=== PATIENT | female | born 1995 | race Caucasian/White ===

== ENCOUNTER 2017-08-24 08:07 | Day surgery (SDC) | payer OTHER ==
[2017-08-24 08:37] VITALS: BMI 25.7
[2017-08-24] MEDS ORDERED: MIDAZOLAM HCL 2 MG/2 ML SINGLE DOSE VIAL ONE (08:55)
[2017-08-24] MEDS ORDERED: DEXAMETHASONE SOD PHOSPHATE 4 MG/1 ML VIAL ONE (08:55)
[2017-08-24] MEDS ORDERED: LIDOCAINE HCL/PF 2% SDV 5ML VIAL ONE (08:55)
[2017-08-24] MEDS ORDERED: PROPOFOL 20 ML ONE ×2 (08:55)
[2017-08-24] MEDS ORDERED: LIDOCAINE HCL 1%, 10 MG/ML (20ML VIAL) ONE (09:38)
[2017-08-24] MEDS ORDERED: LIDOCAINE HCL 1%, 10 MG/ML (20ML VIAL) INF ONE (10:16)
--- NOTE | 2017-08-24 11:02 | HP ---
History & Physical Update - History History: No Change - Physical Physical: No Change - Assessment Assessment: No Change - Plan Plan: No Change
[2017-08-24 11:35] VITALS: TEMP 98.7
[2017-08-24 13:04] VITALS: BP 121/78; PULSE 62
--- NOTE | 2017-08-24 20:37 | OP ---
DATE OF OPERATION: 08/24/2017 PREOPERATIVE DIAGNOSIS: Right breast fibroadenoma. POSTOPERATIVE DIAGNOSIS: Right breast fibroadenoma. PROCEDURE: Excision of right breast mass. SURGEON: Mary Cedeno MD ANESTHESIA: General. ESTIMATED BLOOD LOSS: Minimal. COMPLICATIONS: None. This was a sterile procedure. INDICATION FOR PROCEDURE: Patient presented with a large mass encompassing a lot of the central upper right breast. We did a core biopsy in the office, as a fibroadenoma. As this was enlarging and there was a significant size difference in the 2 breasts, the decision was to go ahead and excise this. The procedure was discussed, with all of her questions answered. PROCEDURE IN DETAIL: Patient was brought to [facility] and taken into the operating room, and after induction of general anesthesia, the right breast was prepped and draped in usual sterile fashion. The area in the upper and retroareolar right breast anesthetized with 1% lidocaine without epinephrine. A periareolar incision was made from the 8 o'clock to the 3 o'clock areolar border, and the mass was excised en bloc. This was difficult as the mass was rather large on trying to getting it out of the breast. However, I was able to remove the mass in entirety, and this was sent to Pathology for permanent section as a right breast mass. Hemostasis was assured with electrocautery. The parenchyma approximated with interrupted 2-0 Vicryl, skin approximated with interrupted 2-0 Vicryl and running and 4-0 Prolene. A sterile dressing with Tegaderm and 4 x 4's applied. She tolerated the procedure well, was extubated on the operating room table, taken to recovery in good condition. Elva [id number]
--- NOTE | 2017-08-26 12:57 | PATH ---
Surgical Pathology Report Patient Name: MILAGRO BARKER [facility] [place]. Rec. #: [id number] /Age/Gender: 1995 (Age: 21) / F Account: [id number] Location: [facility] Taken: 08/24/2017 Received: 08/24/2017 Reported: 08/26/2017 Physicians: Mary Cedeno M.D. Specimen(s) Received RIGHT BREAST MASS Clinical History Right breast mass Final Diagnosis RIGHT BREAST MASS, WIDE EXCISION: CELLULAR FIBROADENOMA. Electronically Signed Mark Mckeon M.D. Gross Description Received in formalin labeled "mass right breast," is a 6.0 x 5.2 x 4.5 cm bedoya, unoriented, focally disrupted rubbery mass. There is no needle localization wire present. There is no skin present. The specimen is inked blue and serially sectioned. Sectioning reveals pink-bedoya, rubbery, lobulated parenchyma. No areas of hemorrhage or necrosis are identified. Radio Director sections are sequentially submitted in 6 cassettes. Total formalin fixation time: Approximately 6 hours 08/24/201708/24/2017
== END 2017-08-24 12:50 | disposition home or self-care (01) ==
LOC: JASU-SURG 08:07
PROVIDERS: ATTEND Surgery
PROC: 0HBT0ZX Excision of Right Breast, Open Approach, Diagnostic (ICD-10-PCS; principal; 2017-08-24 09:00)
DX: D24.1 Benign neoplasm of right breast (principal)
CPT/HCPCS: 36415; 84702; 88307-TC; 94760